=== PATIENT | male | born 1945 | race Caucasian/White ===

== ENCOUNTER 2017-03-19 09:04 | Emergency (ER) | payer BC, OTHER ==
[~2017-03-19] VITALS: Ht 172.7 cm; Wt 79.9 kg
[~2017-03-19 09:04] MED LIST: LANS30CA12 PO; MULT-513 PO; [UNRECOGNIZED DRUG - OTHER] PO; [UNRECOGNIZED DRUG - OTHER] PO; [UNRECOGNIZED DRUG - OTHER] PO
[2017-03-19 09:11] VITALS: TEMP 36.6; Ht 172.7 cm; Wt 79.9 kg
[2017-03-19] MEDS ORDERED: CMD75 PO (09:37)
[2017-03-19] MEDS ORDERED: METO-217 PO (09:37)
[2017-03-19] MEDS ORDERED: CMD5 PO (09:37)
[2017-03-19] MEDS ORDERED: HYDR500C3 PO (09:37)
[2017-03-19] MEDS ORDERED: OPTIRAY 320 IV PRN (09:45)
[2017-03-19 09:49] LABS: URINE APPEARANCE CLEAR (CLEAR); URINE BILIRUBIN NEG (NEG); URINE COLOR YELLOW; URINE EPITHELIAL CELL AUTO 0-5 /lpf (0-5); URINE NITRITE NEG (NEG); URINE PH 5.5 (4.5-7.5); URINE SPECIFIC GRAVITY 1.015 (1.000-1.030); UROBILINOGEN NEG (NEG); ZZUR CULT IF INDIC CLEAN CATCH NO
[2017-03-19 09:52] LABS: BASO % 0.7 %; BASO ABS # 0.07 K/uL (0-0.2); EOS % 0.7 %; HEMATOCRIT 34.4 % (42-52); IG% 0.6 %; LYMPH % 15.8 %; LYMPH ABS # 1.52 K/uL (1.2-3.4); MEAN CELL VOLUME 83.5 fL (80-100); MEAN CORPUSCULAR HEMOGLOBIN 25.5 pg (25-34); MEAN CORPUSCULAR HGB CONC 30.5 g/dl (32-36); MEAN PLATELET VOLUME 9.5 fL (7.4-10.4); NEUT % 77.2 %; PLATELET COUNT 773 K/uL (130-400); RED BLOOD COUNT 4.12 M/uL (4.7-6.1); WHITE BLOOD COUNT 9.63 K/uL (4.8-10.8)
[2017-03-19 09:55] LABS: MANUAL MICROSCOPIC REQUIRED? NO; REVIEW REQ? NO
[2017-03-19 10:12] LABS: CALCIUM 9.5 mg/dl (8.5-10.1); POTASSIUM 4.2 mmol/L (3.5-5.1)
[2017-03-19 10:28] LABS: ANISOCYTOSIS PRESENT; COMPLETE YES; HYPERSEGMENTED POLYS 1+; HYPOCHROMIA PRESENT; OVALOCYTES 1+; POIKILOCYTOSIS PRESENT; TEAR DROP CELLS 1+
--- NOTE | 2017-03-19 11:19 | DIAGNOSTIC IMAGING REPORT ---
CT OF THE ABDOMEN AND PELVIS WITHOUT CONTRAST CLINICAL HISTORY: Lower abdominal pain. Constipation. COMPARISON STUDY: No previous studies for comparison. TECHNIQUE: Axial images of the abdomen and pelvis were obtained without IV contrast. Images were reviewed in the axial, sagittal, and coronal planes. A dose lowering technique was utilized adhering to the principles of ALARA. FINDINGS: Lung bases are clear. Unenhanced images of the liver, spleen, adrenal glands and pancreas are unremarkable. There are innumerable bilateral renal lesions. Many of these measure water attenuation however many measure greater than water attenuation. These may reflect a combination of simple and hyperdense cysts. These are suboptimally assessed on this unenhanced examination. There is a probable 2 mm right renal calculus. There is no hydronephrosis. There is no evidence for a bowel obstruction. There is marked circumferential wall thickening of the mid sigmoid colon with diverticulosis and moderate pericolonic infiltration. There is no free air or abscess. A few prominent pericolonic lymph nodes measure up to 9 mm. There is mass effect on the bladder with mild bladder wall thickening. There is no definite colovesicular fistula. A small amount of fluid within the pelvis is noted. This does not appear loculated. There are no suspicious osseous lesions. There are postoperative findings within the lumbosacral spine. IMPRESSION: 1. Findings consistent with acute sigmoid diverticulitis. Sausage-like circumferential wall thickening of the sigmoid colon with moderate pericolonic infiltration. No free air or abscess. A few prominent but nonenlarged pericolonic lymph nodes are nonspecific. A follow-up colonoscopy once the patient's symptoms resolve is recommended to exclude the possibility of an underlying mass. Mild mass effect upon the bladder with bladder wall thickening. No definite colovesicular fistula however findings could be correlated with urinalysis to exclude this possibility. 2. Small amount of ascites within the pelvis. 3. Innumerable bilateral renal lesions. These are suboptimally assessed on this unenhanced exam but favor a combination of simple and hyperdense cysts. The findings suggest polycystic kidney disease. Electronically signed by: Hany Morales M.D. 03/19/2017 11:17 AM Dictated Date/Time: 03/19/2017 11:09 AM
[2017-03-19] MEDS ORDERED: MoRPHine SULFATE 10 MG/ML CARP/VIAL IV STA (11:31)
[2017-03-19] MEDS ORDERED: AMPICILLIN/SULBACTAM SOD INJ 3,000 MG in SODIUM CHLORIDE 0.9% 100ML 100 ML IV STA (11:45)
[2017-03-19] MEDS ORDERED: AMOXICILLIN/CLAVULANATE TAB 875 MG TAB PO ONE (11:45)
[2017-03-19] MEDS ORDERED: AMOX875T PO (11:57)
[2017-03-19] MEDS ORDERED: OXYC1TAB3 PO (11:57)
[2017-03-19 13:00] VITALS: BP 117/71; PULSE 73; O2SAT 97
--- NOTE | 2017-03-19 14:02 | EMERGENCY ROOM VISIT NOTE ---
History Report prepared by Marina: Quita Cohen Under the Supervision of: Mile BurgosO. First contact with patient: 09:26 Chief Complaint: ABDOMINAL PAIN Stated Complaint: SEVERE CONSTIPATION [id number], SEVERE PAIN Nursing Triage Summary: Diffuse abdominal pain since last Wednesday, unable to have a proper bowel movement "I feel like I go a teaspoon at a time". Denies any N/V. History of Present Illness The patient is a 71 year old male who presents to the Emergency Room with complaints of worsening abdominal pain for the past 6 days. His pain is diffuse throughout his abdomen and radiates down into his groin. He rates his pain as a 7/10 in severity. The patient typically has two bowel movements per day. He states that this has not been happening for the past 6 days. He is defecating "about a teaspoon" of stool at a time. The patient denies fevers, nausea, vomiting, diarrhea, testicular pain, and any recent antibiotic usage. He denies any recent changes to his medications or previous abdominal surgeries. No blood in stool. He thinks he may have had a history of diverticulitis previously. Source of History: patient Onset: 6 days ago Position: abdomen Symptom Intensity: 7/10 Quality: other (radiating) Timing: worsening Associated Symptoms: No fevers, No nausea, No vomiting, No diarrhea Note: Pt has some groin pain. Pt denies testicular pain. Review of Systems See HPI for pertinent positives & negatives. A total of 10 systems reviewed and were otherwise negative. Past Medical & Surgical Surgical Problems: (1) Knee joint replacement status Family History Non-pertinent due to advanced age. Social History Smoking Status: Never Smoker Marital Status: Housing Status: lives with significant other Occupation Status: retired Current/Historical Medications Scheduled Amoxicillin & Pot Clavulanate (Augmentin 875-125 mg), 875 MG PO BID Hydroxyurea (Hydrea Cap), 1,000 MG PO Q2D Hydroxyurea (Hydrea Cap), 1,500 MG PO Q2D Metoprolol Succinate (Toprol Xl), 50 MG PO DAILY Multivitamins/Minerals (Mvi With Minerals), 1 TAB PO DAILY Warfarin Sod (Coumadin), 5 MG PO 5XWK Warfarin Sod (Coumadin), 7.5 MG PO 2XWK [Nikken Immunity], 1 CAP PO BID [Nikken Joint], 2 CAP PO BID [Oncolyn], 750 MG PO DAILY Scheduled PRN Oxycodone Immediate Rel Tab (Roxicodone Ir), 5 MG PO Q6H PRN for Pain Allergies Coded Allergies: Ciprofloxacin (Verified Adverse Reaction, Severe, "FEVERS", 03/19/17) Physical Exam Vital Signs Date Time Temp Pulse Resp B/P (MAP) Pulse Ox O2 Delivery O2 Flow Rate FiO2 03/19/17 13:00 73 16 117/71 97 03/19/17 11:27 76 16 142/88 99 Room Air 03/19/17 09:11 36.6 89 18 131/84 98 Room Air Physical Exam GENERAL: alert, sitting up in bed, well appearing, well nourished, no distress, non-toxic EYE EXAM: normal conjunctiva OROPHARYNX: no exudate, no erythema, lips, buccal mucosa, and tongue normal and mucous membranes are moist NECK: supple, no nuchal rigidity, no adenopathy, non-tender LUNGS: Clear to auscultation. Normal chest wall mechanics HEART: no murmurs, S1 normal and S2 normal ABDOMEN: abdomen soft, minimal tenderness in lower abdomen, normo-active bowel sounds, no masses, no rebound or guarding. : Normal external circumcised genitalia, testicles non-tender, no appreciable masses. BACK: Back is symmetrical on inspection and there is no deformity, no midline tenderness, no CVA tenderness. SKIN: no rashes and no bruising UPPER EXTREMITIES: upper extremities are grossly normal. LOWER EXTREMITIES: No pitting edema. NEURO EXAM: Normal sensorium, cranial nerves II-XII grossly intact, normal speech, no gross weakness of arms, no gross weakness of legs. Medical Decision & Procedures ER Provider Diagnostic Interpretation: Radiology results as stated below per my review and the radiologist's interpretation: CT OF THE ABDOMEN AND PELVIS WITHOUT CONTRAST CLINICAL HISTORY: Lower abdominal pain. Constipation. COMPARISON STUDY: No previous studies for comparison. TECHNIQUE: Axial images of the abdomen and pelvis were obtained without IV contrast. Images were reviewed in the axial, sagittal, and coronal planes. A dose lowering technique was utilized adhering to the principles of ALARA. FINDINGS: Lung bases are clear. Unenhanced images of the liver, spleen, adrenal glands and pancreas are unremarkable. There are innumerable bilateral renal lesions. Many of these measure water attenuation however many measure greater than water attenuation. These may reflect a combination of simple and hyperdense cysts. These are suboptimally assessed on this unenhanced examination. There is a probable 2 mm right renal calculus. There is no hydronephrosis. There is no evidence for a bowel obstruction. There is marked circumferential wall thickening of the mid sigmoid colon with diverticulosis and moderate pericolonic infiltration. There is no free air or abscess. A few prominent pericolonic lymph nodes measure up to 9 mm. There is mass effect on the bladder with mild bladder wall thickening. There is no definite colovesicular fistula. A small amount of fluid within the pelvis is noted. This does not appear loculated. There are no suspicious osseous lesions. There are postoperative findings within the lumbosacral spine. IMPRESSION: 1. Findings consistent with acute sigmoid diverticulitis. Sausage-like circumferential wall thickening of the sigmoid colon with moderate pericolonic infiltration. No free air or abscess. A few prominent but nonenlarged pericolonic lymph nodes are nonspecific. A follow-up colonoscopy once the patient's symptoms resolve is recommended to exclude the possibility of an underlying mass. Mild mass effect upon the bladder with bladder wall thickening. No definite colovesicular fistula however findings could be correlated with urinalysis to exclude this possibility. 2. Small amount of ascites within the pelvis. 3. Innumerable bilateral renal lesions. These are suboptimally assessed on this unenhanced exam but favor a combination of simple and hyperdense cysts. The findings suggest polycystic kidney disease. Electronically signed by: Hany Morales M.D. 03/19/2017 11:17 AM Dictated Date/Time: 03/19/2017 11:09 AM Laboratory Results 03/19/17 09:30 Red Blood Count 4.12, Mean Corpuscular Volume 83.5, Mean Corpuscular Hemoglobin 25.5, Mean Corpuscular Hemoglobin Concent 30.5, Mean Platelet Volume 9.5, Neutrophils (%) (Auto) 77.2, Lymphocytes (%) (Auto) 15.8, Monocytes (%) (Auto) 5.0, Eosinophils (%) (Auto) 0.7, Basophils (%) (Auto) 0.7, Neutrophils # (Auto) 7.43, Lymphocytes # (Auto) 1.52, Monocytes # (Auto) 0.48, Eosinophils # (Auto) 0.07, Basophils # (Auto) 0.07 10/6/17 09:30 Test 03/19/17 09:30 03/19/17 09:35 White Blood Count 9.63 K/uL (4.8-10.8) Red Blood Count 4.12 M/uL (4.7-6.1) Hemoglobin 10.5 g/dL (14.0-18.0) Hematocrit 34.4 % (42-52) Mean Corpuscular Volume 83.5 fL (80-100) Mean Corpuscular Hemoglobin 25.5 pg (25-34) Mean Corpuscular Hemoglobin Concent 30.5 g/dl (32-36) Platelet Count 773 K/uL (130-400) Mean Platelet Volume 9.5 fL (7.4-10.4) Neutrophils (%) (Auto) 77.2 % Lymphocytes (%) (Auto) 15.8 % Monocytes (%) (Auto) 5.0 % Eosinophils (%) (Auto) 0.7 % Basophils (%) (Auto) 0.7 % Neutrophils # (Auto) 7.43 K/uL (1.4-6.5) Lymphocytes # (Auto) 1.52 K/uL (1.2-3.4) Monocytes # (Auto) 0.48 K/uL (0.11-0.59) Eosinophils # (Auto) 0.07 K/uL (0-0.5) Basophils # (Auto) 0.07 K/uL (0-0.2) RDW Standard Deviation 64.0 fL (36.4-46.3) RDW Coefficient of Variation 21.6 % (11.5-14.5) Immature Granulocyte % (Auto) 0.6 % Immature Granulocyte # (Auto) 0.06 K/uL (0.00-0.02) Hypersegmented Polys 1+ Hypochromasia PRESENT Poikilocytosis PRESENT Anisocytosis PRESENT Tear Drop Cells 1+ Ovalocytes 1+ Anion Gap 10.0 mmol/L (3-11) Est Creatinine Clear Calc Drug Dose 31.8 ml/min Estimated GFR () 37.3 Estimated GFR (Non- 32.2 BUN/Creatinine Ratio 15.0 (10-20) Calcium Level 9.5 mg/dl (8.5-10.1) Total Bilirubin 0.9 mg/dl (0.2-1) Direct Bilirubin 0.4 mg/dl (0-0.2) Aspartate Amino Transf (AST/SGOT) 22 U/L (15-37) Alanine Aminotransferase (ALT/SGPT) 23 U/L (12-78) Alkaline Phosphatase 244 U/L (45-117) Total Protein 7.8 gm/dl (6.4-8.2) Albumin 3.3 gm/dl (3.4-5.0) Lipase 100 U/L (73-393) Urine Color YELLOW Urine Appearance CLEAR (CLEAR) Urine pH 5.5 (4.5-7.5) Urine Specific Mead 1.015 (1.000-1.030) Urine Protein 1+ (NEG) Urine Glucose (UA) NEG (NEG) Urine Ketones NEG (NEG) Urine Occult Blood NEG (NEG) Urine Nitrite NEG (NEG) Urine Bilirubin NEG (NEG) Urine Urobilinogen NEG (NEG) Urine Leukocyte Esterase NEG (NEG) Urine WBC (Auto) 1-5 /hpf (0-5) Urine RBC (Auto) 0-4 /hpf (0-4) Urine Hyaline Casts (Auto) 1-5 /lpf (0-5) Urine Epithelial Cells (Auto) 0-5 /lpf (0-5) Urine Bacteria (Auto) NEG (NEG) Laboratory results per my review. Medications Administered Medications (Trade) Dose Ordered Sig/Dania Route Start Time Stop Time Status Last Admin Dose Admin Morphine Sulfate (MoRPHine SULFATE INJ) 6 mg NOW STAT IV 03/19/17 11:31 03/19/17 11:32 DC 03/19/17 11:42 6 MG Amoxicillin/ Clavulanate Potassium (Augmentin Tab) 875 mg NOW ONCE PO 03/19/17 11:45 03/19/17 11:47 DC 03/19/17 12:16 875 MG Ampicillin Sodium/ Sulbactam Sodium 3000 mg/Sodium Chloride 108 ml @ 200 mls/hr NOW STAT IV 03/19/17 11:45 03/19/17 12:17 DC 03/19/17 12:16 200 MLS/HR ED Course ED COURSE: Vital signs were reviewed and showed hypertension. The patients medical record was reviewed The above diagnostic studies were performed and reviewed. ED treatments and interventions as stated above. 0926: The patient was evaluated in room A2. A complete history and physical examination was performed. 1131: Morphine sulfate 6 mg IV 1145: Ampicillin Sodium/Sulbactam Sodium 3000 mg/Sodium Chloride 108 ml @ 200 mls/hr IV, Augmentin tab 875 mg PO 1150: Upon reevaluation, the patient is feeling better and resting comfortably. I discussed my findings with the patient and he understands and agrees with the treatment plan. Based on the patients age, coexisting illnesses, exam and lab findings the decision to treat as an outpatient was made. The patient remained stable while under my care. The patient appeared well at the time of discharge. Medical Decision Differential diagnoses includes but is not limited to gastritis, peptic ulcer disease, GERD, gallbladder disease, pancreatitis, small bowel obstruction, acute coronary syndrome, pericarditis, ischemic bowel, irritable bowel disease, irritable bowel syndrome, appendicitis, diverticulitis, malignancy, hernia, urinary tract infection, torsion, perforation, trauma, infectious. Patient is a 71-year-old male that presents to ER for lower abdominal pain which is present for the past 6 days. He notes decreased stool output. No fevers. No other complaints. Abdominal exam is fairly benign. Vitals are stable. Hemoglobin 10.5. No smoking leukocytosis. BMP shows a creatinine of 2.0. Previous creatinine was 1.7. notes that he normally has an elevated creatinine. Patient will follow this up. UA shows no signs of infection. CT abdomen and pelvis shows diverticulitis and they are unable to rule out possible fistula. Urine does not suggest this. Patient with allergy to Cipro. Given Augmentin. As he is extremely well-appearing labs and vitals are unremarkable he was discharged on Augmentin to follow-up with PCP. He will need his creatinine rechecked and eventually colonoscopy once symptoms improve. Discussed with Pt concerning signs and symptoms to watch out for. Pt was instructed to follow up with their PCP and discussed with the patient their option to return to the ED at anytime for persistent or worsening symptoms. The appropriate anticipatory guidance and out-patient management, including indications for return to the emergency department, were explained at length to the patient and understood. Medication Reconcilliation Current Medication List: was personally reviewed by me Blood Pressure Screening Patient's blood pressure: Elevated blood pressure Blood pressure disposition: Elevated BP felt to be situational Impression Primary Impression: Diverticulitis Additional Impression: CKD (chronic kidney disease) Scribe Attestation The scribe's documentation has been prepared under my direction and personally reviewed by me in its entirety. I confirm that the note above accurately reflects all work, treatment, procedures, and medical decision making performed by me. Departure Information Dispostion Home / Self-Care Prescriptions Amoxicillin & Pot Clavulanate (Augmentin 875-125 mg) 1 Tab Tab 875 MG PO BID for 10 Days, TAB Prov: Alcides Sanford, DO 03/19/17 Oxycodone Immediate Rel Tab (ROXICODONE IR) 5 Mg Tab 5 MG PO Q6H Y for Pain, #10 TAB Prov: Alcides Sanford, DO 03/19/17 Referrals No Doctor, Assigned (PCP) Elisa Rosa PA-C Forms Call Back Authorization, HOME CARE DOCUMENTATION FORM, IMPORTANT VISIT INFORMATION Patient Instructions ED Diverticulitis, My [facility] Additional Instructions Please follow up with your primary care doctor with in the next 24 hours. Any worsening of your symptoms, please return to the ED immediately. This includes any fevers greater than 100.4, worsening pain, chest pain, shortness breath, persistent nausea, vomiting, unable to eat or drink, or any other concerning signs or symptoms from your standpoint. Please take antibiotics as prescribed. You were given medications during this visit that will inhibit your ability to drive, operate machinery and work. Please do NOT drive, operate machinery or work for the next 12hrs. You were also given a prescription for a narcotic/Oxy IR. While taking this medication you should also not drive, operate machinery and or work. Problem Qualifiers Primary Impression: Diverticulitis Diverticulitis site: large intestine Diverticulitis bleeding: without bleeding Diverticulitis complication: without perforation or abscess Qualified Codes: K57.32 - Diverticulitis of large intestine without perforation or abscess without bleeding Additional Impression: CKD (chronic kidney disease) Chronic kidney disease stage: unspecified stage Qualified Codes: N18.9 - Chronic kidney disease, unspecified
== END 2017-03-19 13:02 | disposition home or self-care (01) ==
LOC: C.EDB 09:06 → C.EDA 13:02
DX: K57.32 Diverticulitis of large intestine without perforation or abscess without bleeding (principal); N18.9 Chronic kidney disease, unspecified; Z96.659 Presence of unspecified artificial knee joint; Z79.01 Long term (current) use of anticoagulants